=== PATIENT | male | born 1965 | race Hispanic/Latino ===

== ENCOUNTER 2019-01-06 20:24 | Emergency (ER) | payer OTHER ==
[2019-01-06 21:02] VITALS: BMI 31.0
[2019-01-06 21:04] VITALS: TEMP 98.1
[2019-01-06] MEDS ORDERED: Lidocaine 5% Patch TD STA (22:00)
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
[2019-01-06 23:17] VITALS: BP 122/74; PULSE 88; RESP 16; O2SAT 99
--- NOTE | 2019-01-07 10:01 | RAD ---
Date of service: 01/06/2019 PROCEDURE: Radiographs of the Lumbar Spine. HISTORY: pain COMPARISON: No prior. TECHNIQUE: 5 views obtained. FINDINGS: BONES: Posterior fixation S1-2. Laminectomy at S1. Pedicle screws bilaterally at S1 and S2. No acute fracture. Vertebral bodies maintained in height. Normal alignment maintained. DISC SPACES: There is some narrowing of the L4-5 intervertebral disc space consistent with degenerative disc disease. OTHER FINDINGS: None. IMPRESSION: Status post laminectomy and posterior fusion at S1-S2. No acute fracture. Degenerative disc disease at L4-5.
--- NOTE | 2019-01-07 12:45 | RAD ---
Date of service: 01/06/2019 PROCEDURE: Radiographs of the Chest and Left Ribs. HISTORY: pain COMPARISON: None available. TECHNIQUE: Frontal radiograph of the chest and multiple oblique radiographs of the left ribs were obtained. 4 views obtained. FINDINGS: LEFT RIBS: No fracture or focal lesion visualized. LUNGS: Clear. PLEURA: No pneumothorax or pleural fluid. CARDIOVASCULAR: Normal cardiac size. No pulmonary vascular congestion. No aortic atherosclerotic calcification present OTHER FINDINGS: None. IMPRESSION: Unremarkable radiographs of the chest and left ribs. No left rib fracture.
== END 2019-01-06 23:14 | disposition home or self-care (01) ==
LOC: ED 20:24
DX: M54.5 Low back pain (principal); V49.40XA Driver injured in collision with unspecified motor vehicles in traffic accident, initial encounter; Y92.410 Unspecified street and highway as the place of occurrence of the external cause
CPT/HCPCS: 71101; 72110; 96372; 99285; J1885